=== PATIENT | female | born 1965 | race Caucasian/White ===

== ENCOUNTER → 2017-02-13 | Outpatient (CLI) | payer OTHER ==
[~2017-02-13] VITALS: Ht 157.5 cm; Wt 70.4 kg
[~2017-02-13] MED LIST: ALEV220T14 PO; CHLORHEXIDINE GLUCONATE 2 % 1 PACK (2 CLOTHS) TOPICAL PRN; DIAZ5TAB PO; INSULIN HUMAN REGULAR 1,000 UNITS/10 ML VIAL SQ PRN; LACTATED RINGER'S 1000 ML IV PRN; METOPROLOL TARTRATE 25 MG TAB PO PRN; MULTTAB67 PO; POVIDONE IODINE 5% (ANTISEPSIS KIT) 4 APPLICATIONS EACH NARE PRN; PROPOFOL 200 MG/20 ML AMP IV ONE; SODIUM CHLORID 0.9% 500 ML IV PRN
[2017-02-13 10:14] VITALS: BP 114/76; PULSE 67; RESP 18; TEMP 97.9; O2SAT 98
--- NOTE | 2017-02-13 12:26 | EKG ---
Date Performed: 02/13/2017 Time Performed: 10:43:33 PTAGE: 51 years EKG: SINUS BRADYCARDIA SEPTAL MYOCARDIAL INFARCTION , PROBABLY OLD ABNORMAL ECG NO PREVIOUS TRACING DOCTOR: Ki Taylor Interpretating Date/Time 02/13/2017 12:25:44
--- NOTE | 2017-02-13 13:30 | PD.PROCEDR ---
GI Procedure PROCEDURE PERFORMED Endoscopic ultrasound INDICATION FOR PROCEDURE Pancreatic tail cyst PROCEDURE: The procedure, risks and benefits were discussed with Ms. Tena and informed consent was obtained. Anesthesia sedated her with Diprivan. She was placed in the left lateral decubitus position. EUS: The Pentax videoscope was introduced through the oropharynx and advanced to the second portion of the duodenum under direct visualization. FINDINGS: Hypoechoic lobular pancreas with some [id number] findings consistent with probable underlying chronic pancreatitis No cyst was noted Pancreatic duct and common bile duct unremarkable Gallbladder also unremarkable No lymphadenopathy ESTIMATED BLOOD LOSS: None SPECIMENS REMOVED: None COMPLICATIONS: None IMPRESSION: Endoscopic ultrasound of the pancreas consistent with probable underlying chronic pancreatitis No cyst was identified on today's examination PLAN: Abstain from alcohol Follow-up in clinic Consider repeat imaging in 4-6 months of the abdomen to follow up on the pancreas J Carlos Gonzáles MD Feb 13, 2017 13:30
[2017-02-13 14:04] VITALS: BP 116/73; PULSE 63; RESP 16; TEMP 97.3; O2SAT 97
== END ==
LOC: HEND 09:31
PROVIDERS: ATTEND Internal Medicine Gastroenterology
DX: R93.5 Abnormal findings on diagnostic imaging of other abdominal regions, including retroperitoneum (principal); R94.31 Abnormal electrocardiogram [ECG] [EKG]
CPT/HCPCS: 00740; 43259; 93005; J7120